=== PATIENT | female | born 1995 | race African-American/Black ===

== ENCOUNTER 2018-11-26 23:50 | Emergency (ER) | payer OTHER ==
--- NOTE | 2018-11-27 02:20 | ED ---
GI/ HPI - HPI Summary HPI Summary: Patient is a 23 y/o F presenting to ED with complaints of dysuria, lower pelvic pain, and increased frequency and urgency of urination. Sx are reported to have onset 11/26/18 at 1999. She notes Hx of UTI x1 previously and she states that present Sx are similar. Fever, N/V/D, back pain, abdominal pain are denied. She otherwise denies PMHx and allergies to medications. No PSHx is reported, FMHx of HTN, diabetes is denied. On triage, pain is rated 8/10, nothing is noted to aggravate/alleviate Sx. Home medications and allergies are reviewed. - History of Current Complaint Chief Complaint: EDUrogenitalProblems Time Seen by Provider: 11/27/18 01:10 Stated Complaint: POSS UTI PER PT Hx Obtained From: Patient Onset/Duration: Started Hours Ago - onset 199911/26/18, Still Present Timing: Constant, Lasting Hours - onset 199911/26/18 Severity: Severe - 8/10 Current Severity: Severe - 8/10 Pain Intensity: 8 Location of Pain: Other - lower pelvic pain Associated Signs and Symptoms: Positive: Dysuria, UTI Symptoms - increased frequency and urgency of urination, Other: - lower pelvic pain. Negative: Back Pain, Nausea, Vomiting, Diarrhea, Fever, Abdominal Pain Aggravating Factor(s): Nothing Alleviating Factor(s): Nothing - Allergy/Home Medications Allergies/Adverse Reactions: Allergies Allergy/AdvReac Type Severity Reaction Status Date / Time No Known Allergies Allergy Verified 11/26/18 23:54 PMH/Surg Hx/FS Hx/Imm Hx Endocrine/Hematology History: Denies: Hx Diabetes Cardiovascular History: Denies: Hx Hypertension Sensory History: Denies: Hx Legally Blind, Hx Deafness Opthamlomology History: Denies: Hx Legally Blind EENT History: Denies: Hx Deafness Infectious Disease History: No Infectious Disease History: Denies: Traveled Outside the [place] in Last 30 Days - Family History Known Family History: Negative: Hypertension, Diabetes - Social History Alcohol Use: None Substance Use Type: Reports: None Smoking Status (MU): Never Smoked Tobacco Review of Systems Negative: Fever Negative: Abdominal Pain, Vomiting, Diarrhea, Nausea Genitourinary: Other - POSITIVE - LOWER PELVIC PAIN Positive: dysuria, frequency - increased frequency of urination , urgency - increased urgency of urination Musculoskeletal: Other - NEGATIVE - BACK PAIN All Other Systems Reviewed And Are Negative: Yes Physical Exam - Summary Physical Exam Summary: Appearance: well appearing, no pain distress Skin: warm, dry, reflects adequate perfusion Head/face: normal Eyes: EOMI, BLAKE ENT: mucous membranes moist Neck: supple, non-tender Respiratory: CTA, breath sounds present Cardiovascular: RRR, pulses symmetrical Abdomen: non-tender, soft Bowel Sounds: present Musculoskeletal: normal, strength/ROM intact Neuro: normal, sensory motor intact, A&Ox3 Triage Information Reviewed: Yes Vital Signs On Initial Exam: Initial Vitals Temp Pulse Resp BP Pulse Ox 98.0 F 65 16 117/81 100 11/26/18 23:53 11/26/18 23:53 11/26/18 23:53 11/26/18 23:53 11/26/18 23:53 Vital Signs Reviewed: Yes Diagnostics - Vital Signs Vital Signs Temp Pulse Resp BP Pulse Ox 11/26/18 23:53 98.0 F 65 16 117/81 100 - Laboratory Lab Results: Lab Results 11/27/18 Range/Units 01:27 Urine Color Colorless Urine Appearance Clear Urine pH 7 (5-9) Ur Specific [place] 1.005 L (1.010-1.030) Urine Protein 1+(30 mg/dl) A (Negative) Urine Ketones Negative (Negative) Urine Blood 3+ A (Negative) Urine Nitrate Negative (Negative) Urine Bilirubin Negative (Negative) Urine Urobilinogen Negative (Negative) Ur Leukocyte Esterase 2+ A (Negative) Urine WBC (Auto) 3+(>20/hpf) A (Absent) Urine RBC (Auto) 1+(3-5/hpf) A (Absent) Ur Squamous Epith Cells Present A (Absent) Urine Bacteria 1+ A (Absent) Urine Glucose Negative (Negative) Lab Statement: Any lab studies that have been ordered have been reviewed, and results considered in the medical decision making process. GIGU Course/Dx - Course Course Of Treatment: Uncomplicated UTI symptoms without fever, back pain. Urine positive and started on Keflex/Pyridium here. Continue same outpatient. Follow-up with [facility]. - Diagnoses Differential Diagnoses - Female: Other - UTI, cystitis, pyelonephritis, STI Provider Diagnoses: UTI (urinary tract infection) Discharge - Sign-Out/Discharge Documenting (check all that apply): Patient Departure - discharge Patient Received Moderate/Deep Sedation with Procedure: No - Discharge Plan Condition: Stable Disposition: HOME Prescriptions: Cephalexin CAP* [Keflex CAP*] 500 mg PO TID #20 cap Phenazopyridine 200 mg (NF) [Pyridium 200 MG tab *] 200 mg PO TID #9 tab Patient Education Materials: Urinary Tract Infection in Women (ED) Referrals: [facility] - [place] [Primary Care Provider] - Additional Instructions: Drink plenty of fluids, cranberry juice may help. Tylenol, ibuprofen as needed for discomfort. Return with fevers, back pain, vomiting, worse or other concerns. Follow-up with [facility]. - Billing Disposition and Condition Condition: STABLE Disposition: Home - Attestation Statements Document Initiated by Ember: Yes Documenting Scribe: LEESA ABREU Provider For Whom Ember is Documenting (Include Credential): JULIANO RIBEIRO MD Scribe Attestation: LEESA Pyle, scribed for JULIANO RIBEIRO MD on 11/27/18 at 0438. Scribe Documentation Reviewed: Yes Provider Attestation: The documentation as recorded by the LEESA caruso accurately reflects the service I personally performed and the decisions made by , JULIANO RIBEIRO MD Status of Scribreinaldo Document: Viewed
[2018-11-27 02:34] LABS: Urine Bacteria 1+ (Absent); Urine Red Blood Cell 1+(3-5/hpf) (Absent); Urine White Blood Cell 3+(>20/hpf) (Absent)
[2018-11-27 02:35] LABS: Urine Appearance Clear; Urine Color Colorless; Urine Ketones Negative (Negative); Urine Specific Gravity 1.005 (1.010-1.030); Urine Urobilinogen Negative (Negative)
[2018-11-27 02:36] LABS: Urine Bilirubin Negative (Negative); Urine Blood 3+ (Negative); Urine Glucose Negative (Negative); Urine Nitrite Negative (Negative); Urine Protein 1+(30 mg/dL) (Negative)
[2018-11-27] MEDS ORDERED: Cephalexin CAP* 500 MG PO ONE (02:36)
[2018-11-27] MEDS ORDERED: Phenazopyridine TAB* 100 MG PO ONE (02:36)
[2018-11-27 02:37] LABS: Urine Squamous Epithelial Cell Present (Absent)
[2018-11-27 02:47] VITALS: BP 119/79
--- NOTE | 2018-11-29 05:46 | PN ---
Progress Note - Progress Note Date of Service: 11/29/18 Note: Patient's urine culture grew Escherichia coli greater than 100,000. Patient placed on Keflex. Will wait for final culture for sensitivity.
== END 2018-11-27 02:46 | disposition home or self-care (01) ==
LOC: ED 23:50
DX: N39.0 Urinary tract infection, site not specified (principal); R30.0 Dysuria; R10.2 Pelvic and perineal pain
CPT/HCPCS: 81003; 81015; 87077; 87086; 87186; 99282; A9270-GY